=== PATIENT | male | born 1985 | race Caucasian/White ===

== ENCOUNTER 2024-09-30 08:10 | Emergency (ER) | payer OTHER, SELFPAY ==
[2024-09-30 08:17] VITALS: PULSE 75; O2SAT 97
[2024-09-30 08:18] VITALS: BP 150/98; PULSE 79; O2SAT 99
[2024-09-30 08:21] VITALS: BP 150/98; PULSE 74; RESP 16; TEMP 37.2; O2SAT 99; BMI 22.8
--- NOTE | 2024-09-30 08:23 | ED_ITS ---
HPI - General Adult General Chief complaint: Neck Pain/Injury Stated complaint: neck px, radiating in rt arm Time Seen by Provider: 09/30/24 08:23 History of Present Illness HPI narrative: 39-year-old male with ongoing neck pain, has C6-C7 surgery planned for late October 2024, with intermittent right upper extremity paresthesias, neck pain and paresthesias have been increasing, he would like relief. He needs to work next week but can have the day off. He drove himself, does not want any sedating medications given in the emergency department at this time. No problems with bowel or bladder, no problems with gait. His neck is worse with upward gaze, feels better with slight chin flexed position of comfort, which is ongoing, not in acute change. Related Data Previous Rx's Medication Instructions Recorded hydrocodone 5 mg-acetaminophen 325 1 tab PO Q6H PRN pain #14 tabs 09/30/24 mg tablet methocarbamol 500 mg tablet 500 mg PO TID 7 days #21 tabs 09/30/24 naproxen 500 mg tablet 500 mg PO BID 7 days #14 tabs 09/30/24 prednisone 20 mg tablet 40 mg (2 x 20 mg) PO DAILY 5 days 09/30/24 #10 tabs Allergies Allergy/AdvReac Type Severity Reaction Status Date / Time No Known Drug Allergies Allergy Unverified 02/23/23 14:30 Patient History Social History Smoking Status: Unknown if ever smoked Smoking Status: Unknown if ever smoked Exam Narrative Exam Narrative: GENERAL: Well-developed patient, in mild distress. HEAD: Atraumatic. Normocephalic. EYES: Pupils equal round and reactive. Extraocular motions intact. No scleral icterus. No injection or drainage. ENT: Nose without bleeding, purulent drainage. Throat without erythema, tonsillar hypertrophy or exudate. Airway patent. NECK: Trachea midline. Non tender CARDIOVASCULAR: Regular rate and rhythm without murmurs, gallops, or rubs. RESPIRATORY: Clear to auscultation. Breath sounds equal bilaterally. No wheezes, rales, or rhonchi. GASTROINTESTINAL: Abdomen soft, non-tender, nondistended. EXTREMITIES: No edema or joint tenderness. BACK: Nontender without deformity or crepitance. No flank tenderness. NEURO: AOx3. Motor functions grossly nonfocal SKIN: No rash or erythema of visible areas Initial Vital Signs Initial Vital Signs: Vital Signs Pulse Rate 75 09/30/24 08:17 Pulse Oximetry 97 09/30/24 08:17 Course Orders Ordered: Discontinued Medications Acetaminophen (Acetaminophen 325 Mg Tablet) 975 mg PO NOW ONE Stop: 09/30/24 08:58 Last Admin: 09/30/24 09:06 Dose: 975 mg Documented By: ISACC Dexamethasone (Dexamethasone 10 Mg/Ml Vial) 10 mg IM NOW ONE Stop: 09/30/24 08:41 Last Admin: 09/30/24 08:50 Dose: 10 mg Documented By: ISACC Ketorolac Tromethamine (Ketorolac 30 Mg/Ml Vial) 30 mg IM NOW ONE Stop: 09/30/24 08:41 Last Admin: 09/30/24 08:50 Dose: 30 mg Documented By: ISACC Methocarbamol (Methocarbamol 500 Mg Tablet) 500 mg PO NOW ONE Stop: 09/30/24 08:57 Last Admin: 09/30/24 09:06 Dose: 500 mg Documented By: ISACC Morphine Sulfate (Morphine 4 Mg/Ml Inj) 4 mg IM NOW ONE Stop: 09/30/24 09:37 Last Admin: 09/30/24 09:42 Dose: 4 mg Documented By: ISACC Vital Signs Vital signs: Vital Signs - 8 hr 09/30/24 08:21 Temperature 98.9 F Pulse Rate 74 Respiratory Rate 16 Blood Pressure 150/98 H Pulse Oximetry 99 Oxygen Delivery Method Room Air Medical Decision Making [facility] Narrative Medical decision making narrative: 39-year-old male awaiting C6-7 spinal surgery next month at [facility], ongoing right-sided arm paresthesias, recent worse pain, no new injuries or activities. Drove self. Wants to avoid sedating medications. IM Toradol. IM Decadron. Oral Tylenol. We will send prescriptions for prednisone pulse, naproxen, Robaxin, hydrocodone. Encouraged to contact his neurosurgeon after [place] to see if there is any need or possibility to move up his surgery date. Now he has a ride home, we would like to try a muscle relaxant, oral methocarbamol dose given Requests pain medication, IM Dilaudid. Symptoms improved. Further muscle relaxant methocarbamol as an outpatient, anti-inflammatory medications as well. Follow up with his spine surgeon advised as planned. Return precautions discussed. Discharge Plan Departure Patient Disposition: Home Clinical Impression: Neck pain, Cervical radiculopathy Instructions: Chronic Neck Pain Activity Restrictions/Additional Instructions: Chronic neck pain, ongoing cervical radiculopathy posterior neck and arm pain, with right arm paresthesias, awaiting C6-C7 surgery next month, here for pain relief. Injectable Toradol anti-inflammatory and Decadron steroid given. Prescription sent for further steroid prednisone, further anti-inflammatory pain medication naproxen, pain medication hydrocodone with acetaminophen, and muscle relaxant Robaxin/methocarbamol, prescriptions were sent to your pharmacy. Medications as directed. Continue your position of comfort slight chin tucked position. Consider contacting your spinal surgeon after , to see if your October surgical date could be moved up any earlier. Otherwise follow up with your spinal surgeon as planned. Return earlier to this/nearest emergency department for any change worsening symptoms or any concerns prior Prescriptions: New naproxen 500 mg tablet 500 mg PO BID 7 Days Qty: 14 0RF prednisone 20 mg tablet 40 mg PO DAILY 5 Days Qty: 10 0RF methocarbamol 500 mg tablet 500 mg PO TID 7 Days Qty: 21 0RF hydrocodone-acetaminophen 5-325 mg tablet 1 tab PO Q6H PRN (Reason: pain) Qty: 14 0RF Referrals: Miscellaneous,Doctor, MD [Primary Care Provider] - Stand Alone Forms: Patient Portal/API/Survey
[2024-09-30 08:30] VITALS: PULSE 68; O2SAT 99
[2024-09-30] MEDS: KETOROLAC 30 MG/ML VIAL IM (08:50)
[2024-09-30] MEDS: DEXAMETHASONE 10 MG/ML VIAL IM (08:50)
[2024-09-30] MEDS: ACETAMINOPHEN 325 MG TABLET 975 MG PO (09:06)
[2024-09-30] MEDS: methocarbamoL 500 MG TABLET PO (09:06)
[2024-09-30] MEDS: MORPHINE 4 MG/ML INJ IM (09:42)
[2024-09-30 09:52] VITALS: O2SAT 92
[2024-09-30 10:14] VITALS: BP 145/87; PULSE 70; RESP 20; O2SAT 100
== END 2024-09-30 10:15 | disposition home or self-care (01) ==
PROVIDERS: Emergency Provider Emergency Medicine
DX: M54.12 Radiculopathy, cervical region (principal)
CPT/HCPCS: 96372; 99283; 99284; J1100; J1885; J2270